=== PATIENT | female | born 1990 | race Caucasian/White ===

== ENCOUNTER 2023-04-02 11:07 | Emergency (ER) | payer BC, SELFPAY ==
[2023-04-02 11:12] VITALS: BP 138/92
[2023-04-02 11:27] LABS: % Basophils 0.3 % (0-2); % Immature Granulocytes 0.3 % (0-0.5); % Lymphocytes 25.4 % (20.5-51.1); Absolute Eosinophils 0.2 10^3/uL (0-0.7); Absolute Lymphocytes 1.5 10^3/uL (1.2-3.4); Absolute Monocytes 0.4 10^3/uL (0.1-0.6); Absolute Neutrophils 3.9 10^3/uL (1.4-6.5); Hematocrit 37.4 % (37.0-47.0); Hemoglobin 12.8 g/dL (12.0-16.0); Mean Corp Hgb Conc. 34.2 g/dL (33.0-37.0); Mean Corpuscular Hgb 31.2 pg (27.0-31.0); Mean Corpuscular Volume 91.2 fL (81.0-99.0); Mean Platelet Volume 8.8 fL (7.4-10.4); Nucleated Red Blood Cells % 0 %; Platelet Count 233 10^3/uL (130-400); Red Cell Dist. Width 13.4 % (11.5-14.5)
[2023-04-02 11:44] LABS: ALT (SGPT) 20 U/L (0-35); AST (SGOT) 27 U/L (14-36); Albumin 3.8 g/dl (3.5-5.0); Alkaline Phosphatase 78 U/L (38-126); Blood Urea Nitrogen 7 mg/dl (7-17); Carbon Dioxide 23 mmol/L (22-30); Chloride 105 mmol/L (98-107); Glucose 115 mg/dl (70-99); Potassium 3.7 mmol/L (3.5-5.1); Sodium 134 mmol/L (135-145); Total Bilirubin 0.5 mg/dl (0.2-1.3); Total Protein 6.9 g/dl (6.3-8.2); eGFR > 60.00
[2023-04-02 13:57] VITALS: BP 114/69
--- NOTE | 2023-04-02 14:19 | ED.GENMED ---
History of Present Illness
General
Chief Complaint: Vaginal Bleeding
Source: patient
Exam Limitations: none
Time Seen by Provider: 04/02/23 11:37
Travel History
Have you had any contact with someone who has COVID-19?: No
Do you have any symptoms of coronavirus? Fever > 100 degrees, chills, cough, shortness of breath, sore throat, loss of taste or smell, muscle aches, or headache?: No
History of Present Illness
History of Present Illness:
33-year-old female who presents with vaginal bleeding. Patient states it is much outgoing inspector than normal. And in fact when she just want to check herself for bleeding has resolved. No cramping. No vomiting. She has had a ultrasound already for her
Past History
Past History
ED Past Medical History: Asthma
Phy Exam
Physical Exam
Physical Exam:
CONSTITUTIONAL Patient alert and oriented to person, place and time. Well-appearing. Vital signs reviewed.
HEAD atraumatic, normocephalic.
EYES eyelids normal to inspection, Extraocular muscles intact, Conjunctiva normal, Sclera normal.
NECK normal range of motion, Trachea midline, no jugular venous distention.
RESPIRATORY CHEST No respiratory distress noted, Chest expansion equal, Bilateral breath sounds clear.
CARDIOVASCULAR regular rate and rhythm, Heart sounds normal.
ABDOMEN abdomen nontender, Bowel sounds normal. No distention.
BACK normal inspection, no obvious deformities
UPPER EXTREMITY range of motion normal, Motor strength normal, no cyanosis, no edema.
LOWER EXTREMITY range of motion normal, Motor strength normal, no cyanosis, no edema.
NEURO Speech normal, No focal motor deficits, Gustavo coma scale 15, Memory normal, Cranial Nerves intact to screening exam.
SKIN skin warm, dry, and normal in color.
PSYCHIATRIC patient oriented to person place and time, Normal affect.
Course
Orders/Labs/Results
Orders:
Orders
04/02/23 11:16
US 2nd/3rd Trimester Urgent
Comment:
Reason For Exam: 13 weeks , vaginal bleeding
04/02/23 11:20
Type+Screen Urgent
Beta HCG Quantitative Urgent
Is this a screen?: No
CMP [Comprehensive Metabolic Panel] Urgent
Complete Blood Count/With Diff Urgent
Abnormal Lab Results
04/02/23
11:20
RBC 4.10 L 10^6/uL
(4.20-5.40)
MCH 31.2 H pg
(27.0-31.0)
Sodium 134 L mmol/L
(135-145)
Glucose 115 H mg/dl
(70-99)
04/02/23 11:20
04/02/23 11:20
Vital Signs
Initial and Last Documented VS:
Initial Vital Signs
Temp Pulse Resp BP Pulse Ox
98.1 F 118 16 138/92 98
04/02/23 11:12 04/02/23 11:12 04/02/23 11:12 04/02/23 11:12 04/02/23 11:12
Last Documented Vital Signs
Temp Pulse Resp BP Pulse Ox
98.1 F 102 16 114/69 100
04/02/23 11:12 04/02/23 13:57 04/02/23 11:12 04/02/23 13:57 04/02/23 13:57
MDM/Problems Addressed
MDM/Problems Addressed:
Threatened miscarriage
*Radiology
Radiology exam reviewed: radiology read reviewed
*Pulse Oximetry
Patient hypoxic: no
*Critical Care Note
Total Time (30-74mins, 75-104mins- exclusive of procedures): Not Applicable
Data Reviewed
Source: patient
Patient Management
Escalation/DeEscalation of care consider admission/obs:
Viable . Outpatient OB follow-up recommended. Pelvic rest
ED Attending Note
-
Portions of this chart may have been created with voice recognition software.� Occasional wrong word or��sound alike� substitutions may have occurred due to the inherent limitations of voice recognition software.
Discharge Plan
Departure
Patient Disposition: Home (Routine Discharge)
Date of Disposition: 04/02/23
Time of Disposition: 14:22
Patient with high blood pressure during this ER visit?: No
Discharge Problem:
Threatened miscarriage
Instructions: Threatened Miscarriage (DC)
Prescriptions:
No Action
1 mg Tablet
1 tab PO DAILY
Referrals:
Arabella Gibbs CRNP [Family Provider] -
Activity Restrictions/Additional Instructions:
Please see your OB in the next 3 to 5 days for follow-up and reevaluation. Return immediately for worsening symptoms, abdominal cramping, increased bleeding or any other concerns.
Interventions
Interventions:
*Risk Screen - Suicide Last Done: 04/02/23 11:44
*General Assessment Last Done: 04/02/23 11:12
*Neglect/Abuse Screening Last Done: 04/02/23 11:44
*ED COVID-19 Vaccine History Last Done: 04/02/23 11:12
ED-Female Genitourinary Assessment Last Done: 04/02/23 11:45
[2023-04-02 14:51] LABS: Urine Albumin Negative (Neg - Trace); Urine Bilirubin Negative (Negative); Urine Color Yellow; Urine Glucose Negative (Negative); Urine Ketone Negative (Negative); Urine Leukocyte Negative (Negative); Urine Nitrite Negative (Negative); Urine Occult Blood Negative (Negative); Urine Urobilinogen Negative (Neg - 1+); Urine pH 6.5 (5.0-9.0)
[2023-04-02 14:53] LABS: Urine Character Clear (Clear)
== END 2023-04-02 14:29 | disposition home or self-care (01) ==
LOC: EMR 11:07
PROVIDERS: EMERGENCY PHYSICIAN Emergency Medicine; FAMILY PHYSICIAN Registered Nurse
DX: O20.0 Threatened abortion (principal); Z3A.14 14 weeks gestation of pregnancy
CPT/HCPCS: 99284; 76805; 80053; 81003; 84702; 85025; 86850; 86900; 86901

== ENCOUNTER → 2023-09-06 09:34 | Outpatient (REF) | payer BC, SELFPAY | LOC: PNTC 09:34 | PROVIDERS: ATTENDING PHYSICIAN Obstetrics & Gynecology | DX: O36.8190 Decreased fetal movements, unspecified trimester, not applicable or unspecified (principal) | CPT/HCPCS: 76815 ==

== ENCOUNTER 2023-10-02 08:02 | Inpatient (IN) | payer BC, SELFPAY ==
[2023-10-02 08:20] VITALS: BP 117/71; BMI 30.9
[2023-10-02 09:19] LABS: % Basophils 0.6 % (0-2); % Immature Granulocytes 0.8 % (0-0.5); % Lymphocytes 21.1 % (20.5-51.1); % Monocytes 7.8 % (1.7-9.3); % Neutrophils 66.7 % (42.2-75.2); Absolute Basophils 0.1 10^3/uL (0-0.2); Absolute Eosinophils 0.3 10^3/uL (0-0.7); Absolute Immature Granulocytes 0.1 10^3/uL (0-0.05); Absolute Lymphocytes 1.9 10^3/uL (1.2-3.4); Absolute Monocytes 0.7 10^3/uL (0.1-0.6); Absolute Neutrophils 5.9 10^3/uL (1.4-6.5); Hematocrit 35.8 % (37.0-47.0); Hemoglobin 12.2 g/dL (12.0-16.0); Mean Corp Hgb Conc. 34.1 g/dL (33.0-37.0); Mean Corpuscular Hgb 31.7 pg (27.0-31.0); Mean Platelet Volume 10.1 fL (7.4-10.4); Nucleated Red Blood Cells % 0 %; Platelet Count 187 10^3/uL (130-400); Red Blood Cell Count 3.85 10^6/uL (4.20-5.40); Red Cell Dist. Width 14.6 % (11.5-14.5); White Blood Cell Count 8.8 10^3/uL (4.8-10.8)
[2023-10-02] MEDS: LR 1000 IV (11:31)
[2023-10-02] MEDS: PITOCIN 30 UNITS/NSS 500 ML IV (11:31)
[2023-10-02] MEDS: FENTANYL/BUPIVACAINE 100 EPIDURAL (13:15)
[2023-10-02] MEDS: SUBLIMAZE 100 MCG EPIDURAL (13:15)
[2023-10-02] MEDS: MOTRIN 600 MG PO (20:36)
[2023-10-02] MEDS: TYLENOL 650 MG PO (22:31)
[2023-10-02] MEDS: PERCOCET 5/325 1 TABLET PO (22:51)
--- NOTE | 2023-10-03 03:07 | DOWNTIME ---
There was a [facility] [employer] Downtime on 10/03/2023 from 0100 to 10/03/2023 at 0252. Downtime documentation of patient's care, including medication administrations, has been reconciled in the electronic record per guidelines. Refer to the
patient's paper chart under the miscellaneous tab to see printed paper medication records and downtime forms.
[2023-10-03] MEDS: PERCOCET 5/325 2 TABLET PO (04:06)
[2023-10-03] MEDS: MOTRIN 600 MG PO ×4 (04:06→21:53)
[2023-10-03 05:56] LABS: Hematocrit 29.7 % (37.0-47.0); Hemoglobin 10.3 g/dL (12.0-16.0)
[2023-10-03] MEDS: SYNTHROID 88 MCG PO (06:16)
[2023-10-03] MEDS: SENOKOT-S 1 TABLET PO (08:39)
[2023-10-03] MEDS: PERCOCET 5/325 1 TABLET PO ×3 (08:39→19:22)
[2023-10-03] MEDS: PRENATAL PLUS 1 TABLET PO (08:39)
[2023-10-04] MEDS: SYNTHROID 88 MCG PO (05:50)
[2023-10-04] MEDS: MOTRIN 600 MG PO (08:27)
[2023-10-04] MEDS: PRENATAL PLUS 1 TABLET PO (08:27)
[2023-10-04] MEDS: SENOKOT-S 1 TABLET PO (11:51)
[2023-10-05 11:12] LABS: Syphilis/T. pallidum Ab Reflex Negative (Negative)
== END 2023-10-04 13:27 | disposition home or self-care (01) | DRG 768 ==
LOC: LDRP 08:02
PROVIDERS: ADMITTING PHYSICIAN Obstetrics & Gynecology
PROC: 0KQM0ZZ Repair Perineum Muscle, Open Approach (ICD-10-PCS; 2023-10-02)
PROC: 0DQR0ZZ Repair Anal Sphincter, Open Approach (ICD-10-PCS; 2023-10-02)
PROC: 10E0XZZ Delivery of Products of Conception, External Approach (ICD-10-PCS; 2023-10-02)
DX: O42.02 Full-term premature rupture of membranes, onset of labor within 24 hours of rupture (principal); Z37.0 Single live birth; O70.20 Third degree perineal laceration during delivery, unspecified; O87.2 Hemorrhoids in the puerperium; Z3A.39 39 weeks gestation of pregnancy; J45.909 Unspecified asthma, uncomplicated; O99.284 Endocrine, nutritional and metabolic diseases complicating childbirth; E06.3 Autoimmune thyroiditis; O70.1 Second degree perineal laceration during delivery; O71.82 Other specified trauma to perineum and vulva; Z86.16 Personal history of COVID-19; Z79.890 Hormone replacement therapy
CPT/HCPCS: 36415; 85014; 85018; 85025; 86780; 86850; 86900; 86901